=== PATIENT | female | born 1950 | race Caucasian/White ===

== ENCOUNTER 2017-10-06 11:28 | Emergency (ER) | payer MEDICARE, BC ==
[2017-10-06] MEDS ORDERED: NITROGLYCERIN 0.4 MG TAB SL ONE (11:32)
[2017-10-06] MEDS: NITROGLYCERIN 0.4 MG TAB SL PRN ×3 (11:34→12:05)
[2017-10-06 11:38] LABS: BASOPHILS % (AUTO) 2 % (0-3); EOSINOPHILS % (AUTO) 2 % (0-9); HEMATOCRIT 39 % (35-47); MEAN CORPUSCULAR HGB CONC 34.6 gm/dl (32.0-36.0); MEAN CORPUSCULAR VOLUME 93 fL (81-99); MONOCYTES % (AUTO) 7.8 % (0-12); NEUTROPHILS % (AUTO) 46.7 % (37-80)
[2017-10-06 11:39] VITALS: TEMP 98.6
[2017-10-06] MEDS ORDERED: SODIUM CHLORIDE 0.9% FLUSH 10 ML SOL IV PRN (11:46)
[2017-10-06 11:56] LABS: CALCIUM 9.2 mg/dl (8.5-10.1); GLOM FILT RATE 49 mL/min (>60); POTASSIUM 3.7 mMol/L (3.5-5.1); SODIUM 140 mMol/L (136-145)
[2017-10-06] MEDS ORDERED: KETOROLAC TROMETHAMINE 30 MG/ML SOL IV ONE (12:18)
[2017-10-06] MEDS ORDERED: KETOROLAC TROMETHAMINE 30 MG/ML SOL ONE (12:20)
[2017-10-06 14:39] VITALS: RESP 18
[2017-10-06 14:42] VITALS: BP 137/77; PULSE 72; O2SAT 97
== END 2017-10-06 14:35 | disposition home or self-care (01) | DRG 305 ==
LOC: ED 11:28
DX: I16.9 Hypertensive crisis, unspecified (principal); R07.9 Chest pain, unspecified
CPT/HCPCS: 36415; 71045; 71275; 80048; 83880; 84484; 85025; 85378; 85610; 85730; 93005; 99285; J1885; Q9967; A9270-GY